=== PATIENT | female | born 1960 | race African-American/Black ===

== ENCOUNTER 2018-10-04 20:24 | Inpatient (IN) | payer MEDICARE, OTHER ==
[~2018-10-04] VITALS: Ht 175.3 cm; Wt 108.1 kg
[~2018-10-04 20:24] MED LIST: ALBU8HFA IH; AMLO-512 PO; ATOR40TA28 PO; BECL8.7A6 IH; CALC667C PO; CARV25 PO; CLON.2 PO; CLOP75TA32 PO; DSS100 PO; FOLI1TAB15 PO; FURO20TA4 PO; HYDR100T28 PO; INSLAN SQ; INSNOV SQ; LISI-622 PO; NITR0.4T50 SL; PHEN100C23 PO; SERT50TA12 PO; SPIR25 PO; TRAZ-184 PO
[2018-10-04] MEDS ORDERED: POTA8CAP10 PO (20:43)
[2018-10-04] MEDS ORDERED: ASPI81 PO (20:45)
[2018-10-04] MEDS ORDERED: HYDR-4061 PO (20:46)
[2018-10-04] MEDS ORDERED: FAMO20 PO (20:47)
[2018-10-04] MEDS ORDERED: GABA-531 PO ×2 (20:48)
[2018-10-04] MEDS ORDERED: LEVE500T53 PO (20:49)
[2018-10-04] MEDS ORDERED: DOXA2TAB PO (20:50)
[2018-10-04] MEDS ORDERED: GLIP5 PO (20:51)
[2018-10-04 21:04] LABS: GLUCOSE,POINT OF CARE 71 MG/DL (70-110)
[2018-10-04 21:18] LABS: BASOPHILS % (AUTO) 0.5 % (0.0-2.0); EOSINOPHILS % (AUTO) 1.1 % (1.0-6.0); HEMATOCRIT 31.5 % (36-46); HEMOGLOBIN 10.5 g/dL (12.0-16.0); LYMPHOCYTES # (AUTO) 1.5 K/uL (1.0-4.8); LYMPHOCYTES % (AUTO) 22.6 % (22.0-44.0); MEAN CORPUSCULAR HEMOGLOBIN 29.7 pg (26.0-34.0); MEAN CORPUSCULAR HGB CONC 33.3 G/dL (31.0-37.0); MEAN CORPUSCULAR VOLUME 89 fL (80-100); MONOCYTES # (AUTO) 0.7 K/uL (0.1-1.0); NEUTROPHILS # (AUTO) 4.2 K/uL (1.8-7.7); NEUTROPHILS % (AUTO) 64.8 % (40.0-70.0); PLATELET COUNT (AUTO) 155 K/uL (150-450); RED BLOOD CELL COUNT(AUTO) 3.53 MIL/uL (4.00-5.20); RED CELL DISTRIBUTION WIDTH 16.7 % (11.5-14.5)
[2018-10-04 21:33] LABS: CALCIUM, TOTAL 9.6 mg/dL (8.8-10.5); CREATININE 11.56 mg/dL (0.60-1.30); POTASSIUM 3.5 mmol/L (3.5-5.1)
[2018-10-04 21:40] LABS: ALBUMIN 3.4 g/dL (3.4-5.0); BILIRUBIN,TOTAL 0.4 mg/dL (0.1-1.0); TOTAL PROTEIN, SERUM 6.8 g/dL (6.4-8.2)
[2018-10-04] MEDS ORDERED: SODIUM CHLORIDE 0.9% 500 ML IV ONE (22:00)
[2018-10-04] MEDS ORDERED: ONDANSETRON HCL 4 MG/2 ML VIAL IVP ONE (22:00)
[2018-10-04] MEDS ORDERED: ACETAMINOPHEN 325 MG TABLET PO PRN ×2 (22:30→23:00)
[2018-10-04] MEDS ORDERED: 0.9% SODIUM CHLORIDE 10 ML SYRINGE IVP PRN (22:30)
[2018-10-04] MEDS ORDERED: ONDANSETRON HCL 4 MG/2 ML VIAL IVP PRN ×2 (22:30→23:00)
[2018-10-04] MEDS ORDERED: DEXTROSE 50%-WATER 25 GM/50 ML SYRINGE IVP PRN (23:00)
[2018-10-04] MEDS ORDERED: MAGNESIUM HYDROXIDE SUSPENSION 30 ML UDCUP PO PRN (23:00)
[2018-10-04] MEDS ORDERED: HYDROCODONE/ACETAMINOPHEN 5-325 MG TABLET PO PRN (23:00)
[2018-10-04] MEDS ORDERED: ZOLPIDEM TARTRATE 5 MG TABLET PO PRN (23:00)
[2018-10-04] MEDS ORDERED: MORPHINE SULFATE 2 MG/ML SYRINGE IVP PRN (23:00)
[2018-10-04] MEDS ORDERED: BISACODYL 10 MG RECTAL RECTAL SUPPOSITORY PR PRN (23:00)
[2018-10-04 23:04] VITALS: BP 170/90
[2018-10-04] MEDS: TraZODone HCL 100 MG TABLET PO SCH (23:30)
[2018-10-04] MEDS ORDERED: HydrALAZINE HCL 20 MG/ML VIAL IVP PRN (23:30)
[2018-10-04] MEDS ORDERED: MORPHINE SULFATE 4 MG/ML SYRINGE IVP PRN (23:42)
[2018-10-05] MEDS: HydrALAZINE HCL 50 MG TABLET PO SCH ×4 (00:26→20:39)
[2018-10-05] MEDS: HEPARIN SODIUM,PORCINE 5,000 UNITS/ML VIAL SQ SCH ×4 (00:27→23:59)
[2018-10-05 05:33] VITALS: BP 133/75
[2018-10-05 07:56] VITALS: BP 117/62
[2018-10-05] MEDS: DOCUSATE SODIUM 100 MG CAPSULE PO SCH ×2 (08:48→21:00)
[2018-10-05] MEDS: ASPIRIN 81 MG CHEWABLE TABLET PO SCH (08:49)
[2018-10-05] MEDS: BECLOMETHASONE DIPR HFA 40 MCG/PUFF 10.6 GM INHALER IH SCH ×2 (08:49→20:39)
[2018-10-05] MEDS: SEVELAMER CARBONATE 800 MG TABLET PO SCH ×3 (08:49→17:49)
[2018-10-05] MEDS: FOLIC ACID 1 MG TABLET PO SCH (08:49)
[2018-10-05] MEDS: PANTOPRAZOLE SODIUM 40 MG DR TABLET PO SCH (08:50)
[2018-10-05] MEDS: CARVEDILOL 25 MG TABLET PO SCH ×2 (09:00→20:33)
[2018-10-05] MEDS ORDERED: FUROSEMIDE 20 MG TABLET PO SCH (09:00)
[2018-10-05] MEDS: SPIRONOLACTONE 25 MG TABLET PO SCH ×2 (09:00→20:33)
[2018-10-05 11:52] VITALS: BP 150/89
[2018-10-05] MEDS: LISINOPRIL 5 MG TABLET PO SCH (12:19)
[2018-10-05] MEDS: AmLODIPine BESYLATE 10 MG TABLET PO SCH (12:19)
[2018-10-05 15:54] VITALS: BP 158/74
[2018-10-05] MEDS: INSULIN LISPRO 100 UNITS/ML SQ PRN ×2 (17:51→21:44)
[2018-10-05 19:55] VITALS: BP 188/96
[2018-10-05 20:04] LABS: GLUCOMETER DEV NAME(LOC) 5N.2; GLUCOSE,POINT OF CARE 55 MG/DL (70-110)
[2018-10-05 20:04] LABS: GLUCOMETER DEV NAME(LOC) 5N.2; GLUCOSE,POINT OF CARE 143 MG/DL (70-110)
[2018-10-05 20:04] LABS: GLUCOMETER DEV NAME(LOC) 5N.2; GLUCOSE,POINT OF CARE 144 MG/DL (70-110)
[2018-10-05 20:05] LABS: GLUCOMETER DEV NAME(LOC) 5N.2; GLUCOSE,POINT OF CARE 213 MG/DL (70-110)
[2018-10-05] MEDS: ATORVASTATIN CALCIUM 40 MG TABLET PO SCH (20:33)
[2018-10-05] MEDS: DOXAZOSIN MESYLATE 2 MG TABLET PO SCH (20:33)
[2018-10-05] MEDS: TraZODone HCL 100 MG TABLET PO SCH (20:33)
[2018-10-05 22:34] LABS: GLUCOMETER DEV NAME(LOC) 5N.1; GLUCOSE,POINT OF CARE 183 MG/DL (70-110)
[2018-10-05 23:35] VITALS: BP 132/57
[2018-10-06 04:24] VITALS: BP 155/84
[2018-10-06 06:25] LABS: CALCIUM, TOTAL 9.2 mg/dL (8.8-10.5); CREATININE 7.02 mg/dL (0.60-1.30); PHOSPHORUS 3.5 mg/dL (2.5-4.9); POTASSIUM 3.4 mmol/L (3.5-5.1)
[2018-10-06 07:40] VITALS: BP 174/68
[2018-10-06] MEDS: SEVELAMER CARBONATE 800 MG TABLET PO SCH ×3 (08:42→17:12)
[2018-10-06] MEDS: HEPARIN SODIUM,PORCINE 5,000 UNITS/ML VIAL SQ SCH ×3 (08:42→23:02)
[2018-10-06] MEDS: PANTOPRAZOLE SODIUM 40 MG DR TABLET PO SCH (08:43)
[2018-10-06] MEDS: FOLIC ACID 1 MG TABLET PO SCH (08:43)
[2018-10-06] MEDS: ASPIRIN 81 MG CHEWABLE TABLET PO SCH (08:43)
[2018-10-06] MEDS: BECLOMETHASONE DIPR HFA 40 MCG/PUFF 10.6 GM INHALER IH SCH ×2 (08:43→20:37)
[2018-10-06] MEDS: LISINOPRIL 5 MG TABLET PO SCH ×2 (08:43→20:40)
[2018-10-06] MEDS: DOCUSATE SODIUM 100 MG CAPSULE PO SCH ×2 (08:46→20:36)
[2018-10-06] MEDS: HydrALAZINE HCL 50 MG TABLET PO SCH ×3 (08:46→20:38)
[2018-10-06] MEDS: CARVEDILOL 25 MG TABLET PO SCH ×2 (09:00→20:38)
[2018-10-06] MEDS: AmLODIPine BESYLATE 10 MG TABLET PO SCH (10:56)
[2018-10-06] MEDS: SPIRONOLACTONE 25 MG TABLET PO SCH ×2 (10:56→20:37)
[2018-10-06 11:14] VITALS: BP 119/64
[2018-10-06] MEDS: INSULIN LISPRO 100 UNITS/ML SQ PRN ×2 (11:49→20:40)
[2018-10-06 15:53] VITALS: BP 157/88
[2018-10-06] MEDS ORDERED: LIDOCAINE/PF 1% 2 ML VIAL ONE (16:58)
[2018-10-06 19:24] VITALS: BP 150/86
[2018-10-06] MEDS: DOXAZOSIN MESYLATE 2 MG TABLET PO SCH (20:37)
[2018-10-06] MEDS: ATORVASTATIN CALCIUM 40 MG TABLET PO SCH (20:37)
[2018-10-06] MEDS: TraZODone HCL 100 MG TABLET PO SCH (20:38)
[2018-10-06 22:58] LABS: GLUCOMETER DEV NAME(LOC) 5S.2; GLUCOSE,POINT OF CARE 131 MG/DL (70-110)
[2018-10-06 22:58] LABS: GLUCOMETER DEV NAME(LOC) 5S.2; GLUCOSE,POINT OF CARE 142 MG/DL (70-110)
[2018-10-06 22:58] LABS: GLUCOMETER DEV NAME(LOC) 5S.2; GLUCOSE,POINT OF CARE 164 MG/DL (70-110)
[2018-10-06 22:58] LABS: GLUCOMETER DEV NAME(LOC) 5S.2; GLUCOSE,POINT OF CARE 98 MG/DL (70-110)
[2018-10-07 00:33] VITALS: BP 161/96
[2018-10-07 03:46] VITALS: BP 155/84
[2018-10-07 06:55] LABS: GLUCOMETER DEV NAME(LOC) 5N.2; GLUCOSE,POINT OF CARE 119 MG/DL (70-110)
[2018-10-07 07:22] VITALS: BP 157/98
[2018-10-07] MEDS: FOLIC ACID 1 MG TABLET PO SCH (08:53)
[2018-10-07] MEDS: AmLODIPine BESYLATE 10 MG TABLET PO SCH (08:53)
[2018-10-07] MEDS: SEVELAMER CARBONATE 800 MG TABLET PO SCH ×3 (08:53→12:22)
[2018-10-07] MEDS: PANTOPRAZOLE SODIUM 40 MG DR TABLET PO SCH (08:53)
[2018-10-07] MEDS: SPIRONOLACTONE 25 MG TABLET PO SCH (08:53)
[2018-10-07] MEDS: ASPIRIN 81 MG CHEWABLE TABLET PO SCH (08:53)
[2018-10-07] MEDS: CARVEDILOL 25 MG TABLET PO SCH (08:53)
[2018-10-07] MEDS: DOCUSATE SODIUM 100 MG CAPSULE PO SCH (08:54)
[2018-10-07] MEDS: LISINOPRIL 5 MG TABLET PO SCH (08:54)
[2018-10-07] MEDS: HEPARIN SODIUM,PORCINE 5,000 UNITS/ML VIAL SQ SCH (08:55)
[2018-10-07] MEDS: BECLOMETHASONE DIPR HFA 40 MCG/PUFF 10.6 GM INHALER IH SCH (08:55)
[2018-10-07] MEDS: HydrALAZINE HCL 50 MG TABLET PO SCH (09:51)
[2018-10-07] MEDS: INSULIN LISPRO 100 UNITS/ML SQ PRN (11:37)
[2018-10-07 11:51] VITALS: BP 152/81
[2018-10-07 12:40] LABS: GLUCOMETER DEV NAME(LOC) 5N.1; GLUCOSE,POINT OF CARE 153 MG/DL (70-110)
[2018-10-07 12:47] LABS: PHOSPHORUS 3.5 mg/dL (2.5-4.9); POTASSIUM 3.5 mmol/L (3.5-5.1)
[2018-10-07 16:15] LABS: MAGNESIUM 1.8 mg/dL (1.80-2.40)
[2018-10-07 16:31] VITALS: BP 153/84
[2018-10-08 13:59] LABS: GLUCOMETER DEV NAME(LOC) 5N.1; GLUCOSE,POINT OF CARE 138 MG/DL (70-110)
== END 2018-10-07 17:30 | disposition home or self-care (01) | DRG 70 ==
LOC: EMS 20:25 → 5N 22:00
PROVIDERS: ADMIT Internal Medicine; ATTEND Internal Medicine
PROC: 5A1D70Z Performance of Urinary Filtration, Intermittent, Less than 6 Hours Per Day (ICD-10-PCS; principal; 2018-10-05)
PROC: 5A1D70Z Performance of Urinary Filtration, Intermittent, Less than 6 Hours Per Day (ICD-10-PCS; 2018-10-06)
DX: G93.40 Encephalopathy, unspecified (principal); N18.6 End stage renal disease; I12.0 Hypertensive chronic kidney disease with stage 5 chronic kidney disease or end stage renal disease; I42.9 Cardiomyopathy, unspecified; N25.81 Secondary hyperparathyroidism of renal origin; I13.2 Hypertensive heart and chronic kidney disease with heart failure and with stage 5 chronic kidney disease, or end stage renal disease; E87.0 Hyperosmolality and hypernatremia; E87.70 Fluid overload, unspecified; A08.4 Viral intestinal infection, unspecified; E78.5 Hyperlipidemia, unspecified; I25.10 Atherosclerotic heart disease of native coronary artery without angina pectoris; E11.22 Type 2 diabetes mellitus with diabetic chronic kidney disease; E83.39 Other disorders of phosphorus metabolism; R55 Syncope and collapse; E87.6 Hypokalemia; F17.210 Nicotine dependence, cigarettes, uncomplicated; G40.909 Epilepsy, unspecified, not intractable, without status epilepticus; I50.9 Heart failure, unspecified; J44.9 Chronic obstructive pulmonary disease, unspecified; Z79.899 Other long term (current) drug therapy; Z91.15 Patient's noncompliance with renal dialysis; Z95.810 Presence of automatic (implantable) cardiac defibrillator; Z99.2 Dependence on renal dialysis; Z91.041 Radiographic dye allergy status; Z79.82 Long term (current) use of aspirin; Z83.3 Family history of diabetes mellitus; Z82.49 Family history of ischemic heart disease and other diseases of the circulatory system
CPT/HCPCS: 70450; 83735; 84100; 84132; 86706; 87081; 87340; 93005; 93306; 93880; 96361; 96374; G0378; J0360; J1644; J2405; J3490; J3535; J7030

== ENCOUNTER 2019-03-14 13:38 | Emergency (ER) | payer MEDICARE, OTHER ==
[~2019-03-14] VITALS: Ht 175.3 cm; Wt 100.0 kg
[~2019-03-14 13:38] MED LIST changes: +ASPI81 PO; -CALC667C PO; -CLON.2 PO; -CLOP75TA32 PO; +DOXA2TAB PO; +FAMO20 PO; +GABA-531 PO; +HYDR-4061 PO; -INSLAN SQ; -INSNOV SQ; +LEVE500T53 PO; +POTA8CAP10 PO
[2019-03-14 15:34] LABS: GLUCOSE,POINT OF CARE 84 MG/DL (70-110)
[2019-03-14] MEDS ORDERED: KETOROLAC TROMETHAMINE 30 MG/ML VIAL IVP ONE (15:45)
[2019-03-14 16:04] LABS: BASOPHILS % (AUTO) 0.7 % (0.0-2.0); EOSINOPHILS % (AUTO) 1.1 % (1.0-6.0); HEMATOCRIT 36.8 % (36-46); HEMOGLOBIN 11.9 g/dL (12.0-16.0); LYMPHOCYTES # (AUTO) 1.6 K/uL (1.0-4.8); LYMPHOCYTES % (AUTO) 43.6 % (22.0-44.0); MEAN CORPUSCULAR HEMOGLOBIN 30.9 pg (26.0-34.0); MEAN CORPUSCULAR HGB CONC 32.5 G/dL (31.0-37.0); MEAN CORPUSCULAR VOLUME 95 fL (80-100); MONOCYTES # (AUTO) 0.4 K/uL (0.1-1.0); MONOCYTES % (AUTO) 11.6 % (2.0-9.0); NEUTROPHILS # (AUTO) 1.6 K/uL (1.8-7.7); PLATELET COUNT (AUTO) 154 K/uL (150-450); RED BLOOD CELL COUNT(AUTO) 3.86 MIL/uL (4.00-5.20)
[2019-03-14 16:19] LABS: CALCIUM, TOTAL 9.7 mg/dL (8.8-10.5); CREATININE 6.95 mg/dL (0.60-1.30); POTASSIUM 3.5 mmol/L (3.5-5.1)
[2019-03-14 16:27] LABS: ALBUMIN 3.7 g/dL (3.4-5.0); BILIRUBIN,TOTAL 0.8 mg/dL (0.1-1.0); TOTAL PROTEIN, SERUM 7.1 g/dL (6.4-8.2)
[2019-03-14 17:33] LABS: APPEARANCE,URINE CLOUDY (CLEAR); BILIRUBIN,URINE NEGATIVE (NEGATIVE); GLUCOSE, URINE (UA) NEGATIVE (NEGATIVE); KETONES,URINE NEGATIVE (NEGATIVE); LEUKOCYTE ESTERASE ,URINE NEGATIVE (NEGATIVE); NITRATE,URINE NEGATIVE (NEGATIVE); OCCULT BLOOD,URINE NEGATIVE (NEGATIVE); PROTEIN,URINE SEE CONFIRM (NEGATIVE); UROBILINOGEN,URINE 0.2 mg/dL (<=1.0)
[2019-03-14 17:40] VITALS: BP 161/79
[2019-03-14 17:40] LABS: SULFOSALICYLIC ACID,URINE 4+ (Negative)
[2019-03-14 17:42] LABS: RBC,URINE None Seen /HPF (0-2); WBC,URINE 0-2 /HPF (0-5)
[2019-03-14 17:43] LABS: BACTERIA,URINE None Seen /HPF (None Seen); SQUAMOUS EPITHELIAL CELL,UR Moderate /LPF (None Seen)
== END 2019-03-14 18:06 | disposition home or self-care (01) ==
LOC: EMS 13:40
DX: G40.909 Epilepsy, unspecified, not intractable, without status epilepticus (principal); R10.30 Lower abdominal pain, unspecified; R07.89 Other chest pain; I11.0 Hypertensive heart disease with heart failure; I50.9 Heart failure, unspecified; F17.210 Nicotine dependence, cigarettes, uncomplicated; J44.9 Chronic obstructive pulmonary disease, unspecified; E11.9 Type 2 diabetes mellitus without complications; Z79.82 Long term (current) use of aspirin; Z79.899 Other long term (current) drug therapy; Z91.041 Radiographic dye allergy status
CPT/HCPCS: 36415; 70450; 71045; 80053; 81001; 82962; 83690; 84484; 85025; 93005; 96374; 99285; J1885